=== PATIENT | female | born 1935 | race Caucasian/White ===

== ENCOUNTER 2018-04-11 16:19 | Inpatient (IN) | payer MEDICARE ==
[~2018-04-11] VITALS: Ht 160 cm; Wt 69.7 kg
[2018-04-11] MEDS ORDERED: SODIUM CHLORIDE 0.9% 1000ML BAG (SEPSIS BOLUS) IV ONE (18:15)
[2018-04-11 19:44] LABS: CHLORIDE 110 mEq/L (98-107)
[2018-04-11 19:47] LABS: PROTHROMBIN TIME 10.4 sec (9.1-11.1)
[2018-04-11] MEDS ORDERED: VANCOMYCIN 1 G PREMIX 200 ML IV ONE (20:00)
[2018-04-11] MEDS ORDERED: PIPERACILLIN/TAZ 3.375G PREMIX 50 ML IV ONE (20:00)
[2018-04-11 20:20] LABS: HEMATOCRIT. 32.6 % (36.0-48.0); MEAN CORPUSCULAR VOLUME 71.9 fL (81.0-99.0); MEAN PLATELET VOLUME 8.2 fl (7.4-10.4); PLATELET 339 x1000/uL (130-400); RED BLOOD CELL COUNT 4.53 mill/uL (4.2-5.4); RED CELL DISTRIBUTION WIDTH 24.5 % (11.6-14.6)
[2018-04-11 20:46] LABS: PLATELET ESTIMATE NORMAL
[2018-04-11 22:05] LABS: CLARITY URINE CLOUDY (CLEAR); COLOR URINE YELLOW (YELLOW); KETONES URINE NEGATIVE (NEGATIVE); LEUKOCYTE ESTERASE URINE 2+ (NEGATIVE); NITRITE URINE POSITIVE (NEGATIVE); OCCULT BLOOD URINE NEGATIVE (NEGATIVE); PH URINE 5.5 (4.5-8.0); PROTEIN URINE TRACE (NEGATIVE); SPECIFIC GRAVITY URINE 1.016 (1.005-1.030); UROBILINOGEN URINE 0.2 E.U./dL (0.2-1.0)
[2018-04-11] MEDS ORDERED: ACETAMINOPHEN 325MG TABLET PO ONE (22:30)
[2018-04-12] VITALS (10 sets, daily range): BP systolic 80–117; BP diastolic 34–67
[2018-04-12] MEDS ORDERED: ACETAMINOPHEN 325MG TABLET PO PRN (02:45)
[2018-04-12] MEDS ORDERED: ONDANSETRON HCL 4MG/2ML VIAL IV PRN (02:45)
[2018-04-12] MEDS ORDERED: DOCUSATE SODIUM 100MG CAPSULE PO PRN (02:45)
[2018-04-12] MEDS ORDERED: HYDROCODONE/ACETAMINOPHEN 5/325MG TABLET PO PRN (02:45)
[2018-04-12] MEDS: SODIUM CHLORIDE 0.9% 1,000 ML IV SCH ×2 (02:51→16:47)
[2018-04-12] MEDS ORDERED: ONDANSETRON 4MG ODT PO PRN (03:00)
[2018-04-12] MEDS ORDERED: DEXTROSE 50% WATER 50ML SYRINGE IV PRN (04:45)
[2018-04-12] MEDS ORDERED: LEVOFLOXACIN 500MG PREMIX 100 ML IV SCH ×2 (05:00)
[2018-04-12] MEDS ORDERED: LEVE500T19 MT (05:56)
[2018-04-12] MEDS ORDERED: vit d PO (05:56)
[2018-04-12] MEDS ORDERED: OMEG-95 MT (05:56)
[2018-04-12] MEDS ORDERED: CYAN500T47 MT (05:56)
[2018-04-12] MEDS ORDERED: GLIM2TAB2 PO (05:56)
[2018-04-12] MEDS ORDERED: LOSA50TA20 MT (05:56)
[2018-04-12] MEDS ORDERED: FOLI-43 MT (05:56)
[2018-04-12] MEDS ORDERED: METF500T6 MT (05:56)
[2018-04-12] MEDS ORDERED: PANT40TA4 MT (05:56)
[2018-04-12] MEDS: BLOOD SUGAR DIAGNOSTIC STRIP TEST SCH ×4 (06:51→21:23)
[2018-04-12] MEDS ORDERED: MECLIZINE (08:01)
[2018-04-12] MEDS ORDERED: ASPI-1079 PO (08:01)
[2018-04-12] MEDS ORDERED: ASPI-986 PO (08:01)
[2018-04-12] MEDS ORDERED: ATOR20TA65 MT (08:01)
[2018-04-12] MEDS ORDERED: MAGN400C PO (08:01)
[2018-04-12] MEDS: ASPIRIN 81MG EC TABLET PO SCH (08:19)
[2018-04-12] MEDS: INSULIN LISPRO 100 UNITS/ML SUBCUT SCH ×4 (08:20→21:00)
[2018-04-12] MEDS: ENOXAPARIN 40MG/0.4ML SYR SUBCUT SCH (08:20)
[2018-04-12] MEDS: AMLODIPINE 10MG TABLET PO SCH (08:21)
[2018-04-12] MEDS ORDERED: IPRATROPIUM/ALBUTEROL 0.5-3(2.5)MG/3ML NEB HHN PRN (11:30)
[2018-04-13] VITALS (15 sets, daily range): BP systolic 110–150; BP diastolic 54–75
[2018-04-13] MEDS: SODIUM CHLORIDE 0.9% 1,000 ML IV SCH ×2 (04:56→17:49)
[2018-04-13] MEDS ORDERED: LEVOFLOXACIN 250MG PREMIX 50 ML IV SCH (05:00)
[2018-04-13] MEDS: BLOOD SUGAR DIAGNOSTIC STRIP TEST SCH ×4 (05:27→21:29)
[2018-04-13] MEDS: INSULIN LISPRO 100 UNITS/ML SUBCUT SCH ×4 (05:27→21:00)
[2018-04-13 06:22] LABS: BASOPHILS % 0.5 % (0.0-2.0); EOSINOPHILS % 2.6 % (0.0-5.0); HEMATOCRIT. 26.2 % (36.0-48.0); HEMOGLOBIN. 8.3 g/dL (12.0-16.0); LYMPHOCYTES % 17.7 % (20.0-50.0); MEAN CORPUSCULAR HEMOGLOBIN 22.9 pg (28.0-32.0); MEAN CORPUSCULAR VOLUME 72.6 fL (81.0-99.0); MEAN PLATELET VOLUME 8.1 fl (7.4-10.4); MONOCYTES % 7.6 % (2.0-8.0); NEUTROPHILS % 71.6 % (40.0-76.0); PLATELET 254 x1000/uL (130-400); RED BLOOD CELL COUNT 3.62 mill/uL (4.2-5.4); RED CELL DISTRIBUTION WIDTH 24.1 % (11.6-14.6)
[2018-04-13] MEDS: ENOXAPARIN 40MG/0.4ML SYR SUBCUT SCH (08:18)
[2018-04-13] MEDS: ASPIRIN 81MG EC TABLET PO SCH (08:18)
[2018-04-13] MEDS: AMLODIPINE 10MG TABLET PO SCH (08:19)
[2018-04-13 09:04] LABS: CHLORIDE 111 mEq/L (98-107)
[2018-04-13] MEDS: CEFTAZIDIME PENTAHYDRATE 1 G in DEXTROSE 5% WATER 50 ML IV SCH (14:48)
[2018-04-14] VITALS (12 sets, daily range): BP systolic 107–157; BP diastolic 58–98
[2018-04-14] MEDS: CEFTAZIDIME PENTAHYDRATE 1 G in DEXTROSE 5% WATER 50 ML IV SCH ×2 (01:49→13:23)
[2018-04-14] MEDS: BLOOD SUGAR DIAGNOSTIC STRIP TEST SCH ×4 (06:25→20:51)
[2018-04-14] MEDS: INSULIN LISPRO 100 UNITS/ML SUBCUT SCH ×4 (07:20→20:51)
[2018-04-14] MEDS: AMLODIPINE 10MG TABLET PO SCH (08:07)
[2018-04-14] MEDS: ENOXAPARIN 40MG/0.4ML SYR SUBCUT SCH (08:07)
[2018-04-14] MEDS: ASPIRIN 81MG EC TABLET PO SCH (08:07)
[2018-04-14] MEDS: SODIUM CHLORIDE 0.9% 1,000 ML IV SCH ×2 (08:11→20:50)
[2018-04-14] MEDS: IPRATROPIUM/ALBUTEROL 0.5-3(2.5)MG/3ML NEB HHN SCH (20:47)
[2018-04-15] VITALS (12 sets, daily range): BP systolic 121–155; BP diastolic 61–75
[2018-04-15] MEDS: CEFTAZIDIME PENTAHYDRATE 1 G in DEXTROSE 5% WATER 50 ML IV SCH ×2 (02:03→16:24)
[2018-04-15] MEDS: ACETYLCYSTEINE 100MG/ML 10% VIAL 4ML INH SCH ×4 (02:20→21:09)
[2018-04-15] MEDS: IPRATROPIUM/ALBUTEROL 0.5-3(2.5)MG/3ML NEB HHN SCH ×4 (02:21→21:03)
[2018-04-15] MEDS: BLOOD SUGAR DIAGNOSTIC STRIP TEST SCH ×5 (06:50→22:03)
[2018-04-15] MEDS: INSULIN LISPRO 100 UNITS/ML SUBCUT SCH ×4 (07:20→21:00)
[2018-04-15] MEDS: AMLODIPINE 10MG TABLET PO SCH (08:53)
[2018-04-15] MEDS: ASPIRIN 81MG EC TABLET PO SCH (08:53)
[2018-04-15] MEDS: ENOXAPARIN 40MG/0.4ML SYR SUBCUT SCH (08:53)
[2018-04-15] MEDS: SODIUM CHLORIDE 0.9% 1,000 ML IV SCH ×2 (10:47→22:56)
[2018-04-15] MEDS ORDERED: MECLIZINE 25MG TABLET PO PRN (14:45)
[2018-04-16] VITALS (9 sets, daily range): BP systolic 106–157; BP diastolic 49–80
[2018-04-16] MEDS: CEFTAZIDIME PENTAHYDRATE 1 G in DEXTROSE 5% WATER 50 ML IV SCH (02:28)
[2018-04-16] MEDS: IPRATROPIUM/ALBUTEROL 0.5-3(2.5)MG/3ML NEB HHN SCH ×2 (03:19→07:30)
[2018-04-16] MEDS: BLOOD SUGAR DIAGNOSTIC STRIP TEST SCH ×2 (06:20→12:15)
[2018-04-16 06:29] LABS: BASOPHILS % 0.5 % (0.0-2.0); EOSINOPHILS % 4.9 % (0.0-5.0); HEMATOCRIT. 27.6 % (36.0-48.0); HEMOGLOBIN. 8.8 g/dL (12.0-16.0); LYMPHOCYTES % 15.8 % (20.0-50.0); MEAN CORPUSCULAR HEMOGLOBIN 22.9 pg (28.0-32.0); MEAN CORPUSCULAR VOLUME 71.9 fL (81.0-99.0); MEAN PLATELET VOLUME 8.6 fl (7.4-10.4); MONOCYTES % 6.6 % (2.0-8.0); NEUTROPHILS % 72.2 % (40.0-76.0); PLATELET 262 x1000/uL (130-400); RED BLOOD CELL COUNT 3.83 mill/uL (4.2-5.4); RED CELL DISTRIBUTION WIDTH 24.2 % (11.6-14.6)
[2018-04-16 06:32] LABS: CHLORIDE 109 mEq/L (98-107)
[2018-04-16] MEDS: INSULIN LISPRO 100 UNITS/ML SUBCUT SCH ×2 (07:20→12:15)
[2018-04-16] MEDS: ACETYLCYSTEINE 100MG/ML 10% VIAL 4ML INH SCH (07:30)
[2018-04-16] MEDS: ASPIRIN 81MG EC TABLET PO SCH (08:59)
[2018-04-16] MEDS: AMLODIPINE 10MG TABLET PO SCH (09:00)
[2018-04-16] MEDS: ENOXAPARIN 40MG/0.4ML SYR SUBCUT SCH (09:01)
== END 2018-04-16 16:30 | disposition home health service (06) | DRG 871 ==
LOC: ER 17:40 → EDBEDREQTM 20:14 → EDBEDREQ 20:14 → EDBEDREQSVC 20:14 → 3WST 20:16 → EDBEDREQ 20:18 → EDBEDREQTM 20:18 → ENRESERV 23:30
PROVIDERS: ADMIT Hospitalist; ATTEND Hospitalist
DX: A41.51 Sepsis due to Escherichia coli [E. coli] (principal); J96.00 Acute respiratory failure, unspecified whether with hypoxia or hypercapnia; J18.9 Pneumonia, unspecified organism; N39.0 Urinary tract infection, site not specified; G81.91 Hemiplegia, unspecified affecting right dominant side; E44.1 Mild protein-calorie malnutrition; I11.9 Hypertensive heart disease without heart failure; D64.9 Anemia, unspecified; E11.9 Type 2 diabetes mellitus without complications; Z86.73 Personal history of transient ischemic attack (TIA), and cerebral infarction without residual deficits; Z99.3 Dependence on wheelchair; Z68.27 Body mass index [BMI] 27.0-27.9, adult
CPT/HCPCS: 36415; 70450; 71045; 80053; 81003; 82962; 83605; 83735; 83880; 84134; 85025; 85610; 87040; 87077; 87086; 87186; 93005; 93970; 94640; 94667; 96365; 96367; 97110; 97163; 97530; 99291; A6261; C1893; J0713; J1650; J1815; J1956; J2543; J3370; J7030; J7060; J7608; J7620; A4315

== ENCOUNTER 2018-05-21 00:26 | Inpatient (IN) | payer MEDICARE ==
[~2018-05-21] VITALS: Ht 152.4 cm; Wt 55.0 kg
[2018-05-21] VITALS (26 sets, daily range): BP systolic 87–131; BP diastolic 44–95
[~2018-05-21 00:26] MED LIST: ASPI-1079 PO; ASPI-986 PO; ATOR20TA65 MT; CYAN500T47 MT; FOLI-43 MT; GLIM2TAB2 PO; LEVE500T19 MT; LOSA50TA20 MT; MAGN400C PO; MECLIZINE; METF500T6 MT; OMEG-95 MT; PANT40TA4 MT; vit d PO
[2018-05-21] MEDS ORDERED: SODIUM CHLORIDE 0.9% 1,000 ML IV ONE (00:33)
[2018-05-21] MEDS ORDERED: ADENOSINE 3 MG/ML 2ML VIAL IV ONE ×2 (00:37→00:45)
[2018-05-21] MEDS ORDERED: AMIODARONE HCL 900 MG in DEXT 5% WATER 500 ML IV ONE (00:45)
[2018-05-21] MEDS ORDERED: ASPIRIN 81MG TABLET PO ONE (00:45)
[2018-05-21] MEDS ORDERED: AMIODARONE HCL 150 MG in DEXT 5% WATER 100 ML IV ONE (00:45)
[2018-05-21] MEDS ORDERED: METOPROLOL TARTRATE 5MG/5ML VIAL IV ONE (00:45)
[2018-05-21] MEDS ORDERED: CLONIDINE 0.1MG TABLET PO PRN (01:00)
[2018-05-21] MEDS ORDERED: DEXTROSE 50% WATER 50ML SYRINGE IV PRN ×2 (01:00→08:45)
[2018-05-21] MEDS ORDERED: GUAIFENESIN 200MG/10ML SUGAR FREE UDC PO PRN (01:00)
[2018-05-21] MEDS ORDERED: DOCUSATE SODIUM 100MG CAPSULE PO PRN (01:00)
[2018-05-21] MEDS ORDERED: AMIODARONE HCL 900 MG in DEXT 5% WATER 482 ML IV PRN ×2 (01:00→01:15)
[2018-05-21] MEDS ORDERED: MAGNESIUM/ALUMINUM HYDROXIDE/SIMETHICONE 30ML UDC PO PRN (01:00)
[2018-05-21] MEDS ORDERED: DIGOXIN 500MCG/2ML AMP IV SCH ×2 (01:00→06:00)
[2018-05-21] MEDS ORDERED: ACETAMINOPHEN 650MG SUPP PR PRN (01:00)
[2018-05-21] MEDS ORDERED: IPRATROPIUM/ALBUTEROL 0.5-3(2.5)MG/3ML NEB INH PRN (01:00)
[2018-05-21] MEDS ORDERED: NA PHOS,M-B/NA PHOS,DI-BA ENEMA 118ML PR PRN (01:00)
[2018-05-21] MEDS ORDERED: ONDANSETRON HCL 4MG/2ML INJ IV PRN (01:00)
[2018-05-21] MEDS ORDERED: HYDROCODONE/ACETAMINOPHEN 5/325MG TABLET PO PRN (01:00)
[2018-05-21] MEDS ORDERED: ACETAMINOPHEN 650MG/20.3ML UDC GT PRN (01:00)
[2018-05-21] MEDS ORDERED: DIPHENHYDRAMINE 50MG/ML VIAL IV PRN (01:00)
[2018-05-21 01:26] LABS: BASOPHILS % 0.5 % (0.0-2.0); EOSINOPHILS % 2.7 % (0.0-5.0); HEMATOCRIT. 42.2 % (36.0-48.0); HEMOGLOBIN. 13.2 g/dL (12.0-16.0); LYMPHOCYTES % 17.1 % (20.0-50.0); MEAN CORPUSCULAR HEMOGLOBIN 25.8 pg (28.0-32.0); MEAN CORPUSCULAR VOLUME 82.5 fL (81.0-99.0); MEAN PLATELET VOLUME 8.4 fl (7.4-10.4); MONOCYTES % 7.7 % (2.0-8.0); PLATELET 222 x1000/uL (130-400); RED BLOOD CELL COUNT 5.12 mill/uL (4.2-5.4); RED CELL DISTRIBUTION WIDTH 29.8 % (11.6-14.6)
[2018-05-21 01:32] LABS: D-DIMER 2.62 mg/L FEU (<0.50); INR 1.1; PARTIAL THROMBOPLASTIN TIME 22.1 sec (23.4-31.0); PROTHROMBIN TIME 10.7 sec (9.1-11.1)
[2018-05-21 02:36] LABS: CHLORIDE 110 mEq/L (98-107)
[2018-05-21 02:39] LABS: HDL CHOLESTEROL 29 mg/dL (40-59); LDL CHOLESTEROL 71 mg/dL (5-100)
[2018-05-21 03:59] LABS: CLARITY URINE CLEAR (CLEAR); COLOR URINE YELLOW (YELLOW); KETONES URINE NEGATIVE (NEGATIVE); LEUKOCYTE ESTERASE URINE TRACE (NEGATIVE); NITRITE URINE NEGATIVE (NEGATIVE); OCCULT BLOOD URINE NEGATIVE (NEGATIVE); PH URINE 5.5 (4.5-8.0); PROTEIN URINE NEGATIVE (NEGATIVE); SPECIFIC GRAVITY URINE 1.017 (1.005-1.030); UROBILINOGEN URINE 0.2 E.U./dL (0.2-1.0)
[2018-05-21 04:12] LABS: *AMPHETAMINES SCREEN URINE NEGATIVE (NEGATIVE); *BARBITURATES SCREEN URINE NEGATIVE (NEGATIVE); *BENZODIAZEPINES SCREEN URINE NEGATIVE (NEGATIVE); *COCAINE SCREEN URINE NEGATIVE (NEGATIVE); METHADONE URINE SCREEN NEGATIVE (NEGATIVE); OPIATES URINE SCREEN NEGATIVE (NEGATIVE); PHENCYCLIDINE URINE SCREEN NEGATIVE (NEGATIVE)
[2018-05-21 04:13] LABS: CANNABINOID URINE SCREEN NEGATIVE (NEGATIVE)
[2018-05-21] MEDS ORDERED: SODIUM CHLORIDE 0.45% 1,000 ML IV SCH (04:13)
[2018-05-21] MEDS ORDERED: ASPIRIN 325MG EC TABLET PO SCH (04:18)
[2018-05-21] MEDS ORDERED: ENOXAPARIN 60MG/0.6ML SYR SUBCUT SCH (05:00)
[2018-05-21] MEDS: SODIUM CHLORIDE 0.9% INJ 3ML FLUSH IVF SCH ×3 (05:42→22:59)
[2018-05-21] MEDS: INSULIN LISPRO 100 UNITS/ML SUBCUT SCH ×5 (07:27→21:00)
[2018-05-21] MEDS: BLOOD SUGAR DIAGNOSTIC STRIP TEST SCH ×4 (07:27→21:10)
[2018-05-21 07:29] LABS: CREATINE KINASE MB FRACTION 2.3 ng/mL (0.5-3.6)
[2018-05-21] MEDS: METOPROLOL TARTRATE 25MG TABLET PO SCH ×2 (09:00→21:11)
[2018-05-21] MEDS: ENOXAPARIN 30MG/0.3ML SYR SUBCUT SCH (10:35)
[2018-05-21] MEDS ORDERED: BLOOD SUGAR DIAGNOSTIC STRIP TEST SCH (12:50)
[2018-05-21] MEDS ORDERED: INSULIN LISPRO 100 UNITS/ML SUBCUT SCH (13:20)
[2018-05-21 16:02] LABS: CREATINE KINASE MB FRACTION 2.6 ng/mL (0.5-3.6)
[2018-05-21] MEDS: LEVETIRACETAM 500MG TABLET PO SCH (16:30)
[2018-05-21] MEDS: ATORVASTATIN CALCIUM 20MG TABLET PO SCH (16:30)
[2018-05-21] MEDS: GLIMEPIRIDE 2MG TABLET PO SCH (16:36)
[2018-05-21 18:47] LABS: T4 FREE 1.42 ng/dL (0.76-1.46)
[2018-05-22] VITALS (12 sets, daily range): BP systolic 106–159; BP diastolic 55–79
[2018-05-22] MEDS: SODIUM CHLORIDE 0.9% INJ 3ML FLUSH IVF SCH ×3 (06:25→21:21)
[2018-05-22] MEDS: BLOOD SUGAR DIAGNOSTIC STRIP TEST SCH ×4 (06:49→21:17)
[2018-05-22] MEDS: INSULIN LISPRO 100 UNITS/ML SUBCUT SCH ×4 (07:20→21:00)
[2018-05-22] MEDS: ASPIRIN 81MG TABLET PO SCH (08:21)
[2018-05-22] MEDS: GLIMEPIRIDE 2MG TABLET PO SCH (08:21)
[2018-05-22] MEDS: METOPROLOL TARTRATE 25MG TABLET PO SCH ×2 (08:21→21:20)
[2018-05-22] MEDS: LEVETIRACETAM 500MG TABLET PO SCH ×2 (08:21→17:22)
[2018-05-22] MEDS: ENOXAPARIN 30MG/0.3ML SYR SUBCUT SCH (08:22)
[2018-05-22] MEDS: ATORVASTATIN CALCIUM 20MG TABLET PO SCH (08:28)
[2018-05-22 11:32] LABS: BASOPHILS % 0.6 % (0.0-2.0); EOSINOPHILS % 3.9 % (0.0-5.0); HEMATOCRIT. 39.5 % (36.0-48.0); HEMOGLOBIN. 12.5 g/dL (12.0-16.0); LYMPHOCYTES % 16.2 % (20.0-50.0); MEAN CORPUSCULAR HEMOGLOBIN 26.1 pg (28.0-32.0); MEAN PLATELET VOLUME 8.4 fl (7.4-10.4); MONOCYTES % 6.8 % (2.0-8.0); NEUTROPHILS % 72.5 % (40.0-76.0); PLATELET 214 x1000/uL (130-400); RED BLOOD CELL COUNT 4.77 mill/uL (4.2-5.4); RED CELL DISTRIBUTION WIDTH 28.7 % (11.6-14.6)
[2018-05-22 11:39] LABS: CHLORIDE 108 mEq/L (98-107)
[2018-05-22] MEDS: LOSARTAN POTASSIUM 25 MG TABLET PO SCH (12:28)
[2018-05-22 16:08] LABS: PLATELET ESTIMATE NORMAL
[2018-05-23] VITALS (9 sets, daily range): BP systolic 95–122; BP diastolic 40–78
[2018-05-23] MEDS: BLOOD SUGAR DIAGNOSTIC STRIP TEST SCH ×2 (05:53→12:24)
[2018-05-23] MEDS: SODIUM CHLORIDE 0.9% INJ 3ML FLUSH IVF SCH (06:43)
[2018-05-23] MEDS: INSULIN LISPRO 100 UNITS/ML SUBCUT SCH ×2 (07:20→12:20)
[2018-05-23] MEDS: ATORVASTATIN CALCIUM 20MG TABLET PO SCH (09:33)
[2018-05-23] MEDS: LOSARTAN POTASSIUM 25 MG TABLET PO SCH (09:33)
[2018-05-23] MEDS: LEVETIRACETAM 500MG TABLET PO SCH (09:36)
[2018-05-23] MEDS: METOPROLOL TARTRATE 25MG TABLET PO SCH (09:36)
[2018-05-23] MEDS: ENOXAPARIN 30MG/0.3ML SYR SUBCUT SCH (09:36)
[2018-05-23] MEDS: GLIMEPIRIDE 2MG TABLET PO SCH (09:36)
[2018-05-23] MEDS: ASPIRIN 81MG TABLET PO SCH (09:36)
[2018-05-23] MEDS ORDERED: METO25TA6 PO (10:49)
== END 2018-05-23 14:35 | disposition home or self-care (01) | DRG 308 ==
LOC: ER 00:38 → CVICU 00:43 → EDBEDREQSVC 00:46 → EDBEDREQTM 00:46 → EDBEDREQ 00:46 → ENRESERV 03:05 → 3WST 09:48
PROVIDERS: ADMIT Family Medicine; ATTEND Family Medicine
DX: I47.1 Supraventricular tachycardia (principal); E43 Unspecified severe protein-calorie malnutrition; I48.91 Unspecified atrial fibrillation; E11.9 Type 2 diabetes mellitus without complications; I10 Essential (primary) hypertension; K21.9 Gastro-esophageal reflux disease without esophagitis; E78.5 Hyperlipidemia, unspecified; Z74.01 Bed confinement status; Z86.73 Personal history of transient ischemic attack (TIA), and cerebral infarction without residual deficits; Z68.23 Body mass index [BMI] 23.0-23.9, adult; Z79.82 Long term (current) use of aspirin; Z79.84 Long term (current) use of oral hypoglycemic drugs; Z79.899 Other long term (current) drug therapy; Z82.49 Family history of ischemic heart disease and other diseases of the circulatory system
CPT/HCPCS: 36415; 51702; 71045; 80053; 80061; 80305; 81003; 82550; 82553; 82962; 83036; 83880; 84439; 84443; 84484; 85025; 85379; 85610; 85730; 92960; 93005; 93306; 93970; 96361; 96374; 99291; J0153; J0282; J1160; J1650; J1815; J3490; J7030; J7060

== ENCOUNTER 2019-04-23 22:46 | Inpatient (IN) | payer MEDICARE ==
[~2019-04-23] VITALS: Ht 160 cm; Wt 59.0 kg
[~2019-04-23 22:46] MED LIST changes: -LOSA50TA20 MT; +LOSA50TA41 MT; +METF-414 MT; -METF500T6 MT; +METO25TA6 PO
[2019-04-24] MEDS ORDERED: ALBUTEROL (0.083%) 2.5MG/3ML NEB HHN STA (00:02)
[2019-04-24] MEDS ORDERED: SODIUM CHLORIDE 0.9% 1,000 ML IV ONE (00:02)
[2019-04-24] MEDS ORDERED: IPRATROPIUM BROMIDE (0.02%) 0.5MG/2.5ML NEB HHN STA (00:02)
[2019-04-24 00:28] LABS: BASOPHILS % 0.3 % (0.0-2.0); HEMATOCRIT. 42.6 % (36.0-48.0); HEMOGLOBIN. 14.4 g/dL (12.0-16.0); LYMPHOCYTES % 15.1 % (20.0-50.0); MEAN CORPUSCULAR HEMOGLOBIN 33.6 pg (28.0-32.0); MEAN CORPUSCULAR VOLUME 99.2 fL (81.0-99.0); MEAN PLATELET VOLUME 7.5 fl (7.4-10.4); MONOCYTES % 7.8 % (2.0-8.0); NEUTROPHILS % 76.8 % (40.0-76.0); PLATELET 215 x1000/uL (130-400); RED CELL DISTRIBUTION WIDTH 15.7 % (11.6-14.6)
[2019-04-24 00:34] LABS: CHLORIDE 104 mEq/L (98-107)
[2019-04-24 00:41] LABS: BG BASE EXCESS 1.8 mmol/L (-2.0-2.0); BG CARBOXYHEMOGLOBIN 0.3 % (0.5-1.5); BG DEOXYHEMOGLOBIN 2.2 % (0.0-5.0); BG FRACTION INSPIRED OXYGEN 28; BG HCO3 ACT 25.4 mmol/L (22.0-26.0); BG METHEMOGLOBIN 0.3 % (0.0-1.5); BG OXYGEN SATURATION 97.8 % (92.0-98.5); BG OXYHEMOGLOBIN 97.2 % (94.0-97.0); BG PCO2 36.6 mmHg (35.0-45.0); BG PH 7.459 (7.350-7.450); BG PO2 113.2 mmHg (75.0-100.0); BG SAMPLE SITE LEFT RADIAL; BG TOTAL HEMOGLOBIN 13.9 g/dL (12.0-18.0); BG VENT MODE NASAL CANNULA
[2019-04-24] MEDS ORDERED: AZITHROMYCIN 500 MG in DEXT 5% WATER 250 ML IV SCH (02:00)
[2019-04-24] MEDS ORDERED: CEFTRIAXONE 1 G PREMIX 50 ML IV SCH (02:00)
[2019-04-24 08:42] VITALS: BP 144/59
[2019-04-24] MEDS ORDERED: ACETAMINOPHEN 325MG TABLET PO PRN (08:45)
[2019-04-24] MEDS ORDERED: ONDANSETRON HCL 4MG/2ML INJ IV PRN (08:45)
[2019-04-24] MEDS ORDERED: FUROSEMIDE 20MG/2ML VIAL IVP NR (08:45)
[2019-04-24] MEDS ORDERED: MECL-109 MT (09:17)
[2019-04-24] MEDS ORDERED: DIGO125T82 MT (09:17)
[2019-04-24] MEDS ORDERED: AMIO100T4 PO (09:17)
[2019-04-24 11:38] VITALS: BP 101/48
[2019-04-24] MEDS ORDERED: DEXTROSE 50% WATER 50ML SYRINGE IV PRN (12:00)
[2019-04-24] MEDS: BLOOD SUGAR DIAGNOSTIC STRIP TEST SCH ×3 (12:20→20:39)
[2019-04-24] MEDS: INSULIN LISPRO 100 UNITS/ML SUBCUT SCH ×3 (12:50→20:40)
[2019-04-24] MEDS: IPRATROPIUM/ALBUTEROL 0.5-3(2.5)MG/3ML NEB HHN SCH ×3 (13:17→21:02)
[2019-04-24 14:20] LABS: CLARITY URINE CLEAR (CLEAR); COLOR URINE YELLOW (YELLOW); KETONES URINE NEGATIVE (NEGATIVE); LEUKOCYTE ESTERASE URINE NEGATIVE (NEGATIVE); NITRITE URINE NEGATIVE (NEGATIVE); OCCULT BLOOD URINE NEGATIVE (NEGATIVE); PH URINE 5.5 (4.5-8.0); PROTEIN URINE NEGATIVE (NEGATIVE); SPECIFIC GRAVITY URINE 1.011 (1.005-1.030); UROBILINOGEN URINE 0.2 E.U./dL (0.2-1.0)
[2019-04-24] MEDS: PIPERACILLIN/TAZOBACTAM 2.25 G in DEXTROSE 5% WATER 50 ML IV SCH ×2 (14:58→20:50)
[2019-04-24 15:50] VITALS: BP 111/53
[2019-04-24 20:33] VITALS: BP 121/55
[2019-04-24] MEDS: ENOXAPARIN 40MG/0.4ML SYR SUBCUT SCH (20:57)
[2019-04-25 00:19] VITALS: BP 120/60
[2019-04-25] MEDS: IPRATROPIUM/ALBUTEROL 0.5-3(2.5)MG/3ML NEB HHN SCH ×6 (01:13→21:32)
[2019-04-25] MEDS: PIPERACILLIN/TAZOBACTAM 2.25 G in DEXTROSE 5% WATER 50 ML IV SCH ×4 (03:25→20:17)
[2019-04-25 04:29] VITALS: BP 112/67
[2019-04-25 06:45] LABS: BASOPHILS % 0.7 % (0.0-2.0); HEMATOCRIT. 35.3 % (36.0-48.0); HEMOGLOBIN. 11.7 g/dL (12.0-16.0); LYMPHOCYTES % 17.9 % (20.0-50.0); MEAN CORPUSCULAR HEMOGLOBIN 33.2 pg (28.0-32.0); MEAN CORPUSCULAR VOLUME 100.4 fL (81.0-99.0); MEAN PLATELET VOLUME 8.2 fl (7.4-10.4); NEUTROPHILS % 73.4 % (40.0-76.0); PLATELET 178 x1000/uL (130-400); RED BLOOD CELL COUNT 3.52 mill/uL (4.2-5.4); RED CELL DISTRIBUTION WIDTH 15.9 % (11.6-14.6)
[2019-04-25] MEDS: BLOOD SUGAR DIAGNOSTIC STRIP TEST SCH ×4 (07:20→21:00)
[2019-04-25] MEDS: INSULIN LISPRO 100 UNITS/ML SUBCUT SCH ×4 (07:50→21:00)
[2019-04-25 08:00] VITALS: BP 125/77
[2019-04-25] MEDS: PANTOPRAZOLE SODIUM 40 MG/VIAL IV SCH (18:34)
[2019-04-25 20:33] VITALS: BP 125/60
[2019-04-26] VITALS (7 sets, daily range): BP systolic 113–143; BP diastolic 52–77
[2019-04-26] MEDS: ENOXAPARIN 40MG/0.4ML SYR SUBCUT SCH (00:38)
[2019-04-26] MEDS: IPRATROPIUM/ALBUTEROL 0.5-3(2.5)MG/3ML NEB HHN SCH ×6 (01:29→19:28)
[2019-04-26] MEDS: PIPERACILLIN/TAZOBACTAM 2.25 G in DEXTROSE 5% WATER 50 ML IV SCH ×3 (02:05→15:20)
[2019-04-26] MEDS: BLOOD SUGAR DIAGNOSTIC STRIP TEST SCH ×2 (06:56→12:20)
[2019-04-26] MEDS: INSULIN LISPRO 100 UNITS/ML SUBCUT SCH ×2 (06:57→12:50)
[2019-04-26] MEDS: PANTOPRAZOLE SODIUM 40 MG/VIAL IV SCH (09:14)
== END 2019-04-26 20:20 | disposition home health service (06) | DRG 871 ==
LOC: ER 23:32 → 6WST 04-24 02:51 → EDBEDREQ 04-24 02:54 → EDBEDREQTM 04-24 02:54 → ENRESERV 04-24 07:07
PROVIDERS: ADMIT Internal Medicine; ATTEND Internal Medicine
DX: A41.9 Sepsis, unspecified organism (principal); L89.313 Pressure ulcer of right buttock, stage 3; J96.00 Acute respiratory failure, unspecified whether with hypoxia or hypercapnia; J18.9 Pneumonia, unspecified organism; I69.351 Hemiplegia and hemiparesis following cerebral infarction affecting right dominant side; E87.2 Acidosis; I50.40 Unspecified combined systolic (congestive) and diastolic (congestive) heart failure; J68.0 Bronchitis and pneumonitis due to chemicals, gases, fumes and vapors; E78.5 Hyperlipidemia, unspecified; G40.909 Epilepsy, unspecified, not intractable, without status epilepticus; I11.0 Hypertensive heart disease with heart failure; K44.9 Diaphragmatic hernia without obstruction or gangrene; E11.9 Type 2 diabetes mellitus without complications; I48.91 Unspecified atrial fibrillation; J45.909 Unspecified asthma, uncomplicated; L89.320 Pressure ulcer of left buttock, unstageable; Z90.710 Acquired absence of both cervix and uterus; Z90.49 Acquired absence of other specified parts of digestive tract; I69.320 Aphasia following cerebral infarction; Z79.82 Long term (current) use of aspirin; Z79.899 Other long term (current) drug therapy; Z79.84 Long term (current) use of oral hypoglycemic drugs
CPT/HCPCS: 36415; 36600; 71045; 80048; 81003; 82375; 82805; 82962; 83036; 83605; 83880; 84134; 84484; 92610; 93005; 93306; 93970; 94640; 96361; 96365; 96368; 97162; 99285; C9113; J0456; J0696; J1650; J1940; J2543; J7030; J7060; J7611; J7620

== ENCOUNTER 2022-03-02 19:40 | Inpatient (IN) | payer MEDICARE, OTHER ==
[~2022-03-02] VITALS: Ht 160 cm; Wt 70.5 kg
[~2022-03-02 19:40] MED LIST changes: +AMIO100T4 PO; -ASPI-1079 PO; -ASPI-986 PO; -CYAN500T47 MT; +DIGO125T80 MT; -FOLI-43 MT; -GLIM2TAB2 PO; +GLIM2TAB30 PO; -LEVE500T19 MT; -MAGN400C PO; +MECL-159 MT; -MECLIZINE; -OMEG-95 MT; -PANT40TA4 MT; +PANT40TA51 MT; -vit d PO
[2022-03-02] MEDS ORDERED: SODIUM CHLORIDE 0.9% 1000ML BAG (SEPSIS BOLUS) IV ONE (20:45)
[2022-03-02] MEDS ORDERED: PIPERACILLIN/TAZ 3.375G PREMIX 50 ML IV ONE (20:45)
[2022-03-02 22:04] LABS: CLARITY URINE CLEAR (CLEAR); COLOR URINE YELLOW (YELLOW); KETONES URINE NEGATIVE (NEGATIVE); LEUKOCYTE ESTERASE URINE 3+ (NEGATIVE); NITRITE URINE NEGATIVE (NEGATIVE); OCCULT BLOOD URINE 2+ (NEGATIVE); PROTEIN URINE 1+ (NEGATIVE); SPECIFIC GRAVITY URINE 1.019 (1.005-1.030)
[2022-03-02 23:18] LABS: HEMOGLOBIN. 13.2 g/dL (12.0-16.0); MEAN CORPUSCULAR VOLUME 93.4 fL (81.0-99.0); MEAN PLATELET VOLUME 8.4 fl (7.4-10.4); PLATELET 219 x1000/uL (130-400); RED BLOOD CELL COUNT 4.39 mill/uL (4.2-5.4); RED CELL DISTRIBUTION WIDTH 14.6 % (11.6-14.6)
[2022-03-02 23:20] LABS: CHLORIDE 113 mEq/L (98-107)
[2022-03-02] MEDS ORDERED: VANCOMYCIN 1G PREMIX 200 ML IV NR (23:45)
[2022-03-03 00:08] LABS: PLATELET ESTIMATE NORMAL
[2022-03-03] MEDS: VANCOMYCIN 1G PREMIX 200 ML IV ONE ×2 (00:30→01:14)
[2022-03-03] MEDS ORDERED: ACETAMINOPHEN 325MG TABLET PO ONE (02:45)
[2022-03-03] MEDS ORDERED: HYDROCODONE/ACETAMINOPHEN 5/325MG TABLET PO PRN (07:30)
[2022-03-03] MEDS ORDERED: ACETAMINOPHEN 325MG TABLET PO PRN (07:30)
[2022-03-03] MEDS ORDERED: TRAMADOL 50MG TABLET PO PRN (07:30)
[2022-03-03] MEDS ORDERED: GUAIFENESIN 200MG/10ML SUGAR FREE UDC PO PRN (07:30)
[2022-03-03] MEDS ORDERED: ONDANSETRON HCL 4MG/2ML INJ IV PRN (07:30)
[2022-03-03] MEDS ORDERED: MAGNESIUM/ALUMINUM HYDROXIDE/SIMETHICONE 30ML UDC PO PRN (07:30)
[2022-03-03] MEDS ORDERED: DOCUSATE SODIUM 100MG CAPSULE PO PRN (07:30)
[2022-03-03] MEDS ORDERED: NALOXONE HCL 0.4MG/ML VIAL IV PRN (07:45)
[2022-03-03] MEDS ORDERED: CEFTRIAXONE 1 G PREMIX 50 ML IV SCH (08:00)
[2022-03-03] MEDS ORDERED: ENOXAPARIN 30MG/0.3ML SYR SUBCUT SCH (09:00)
[2022-03-03] MEDS ORDERED: CLOT21CR VG (12:18)
[2022-03-03] MEDS ORDERED: SERT-422 PO (12:18)
[2022-03-03] MEDS ORDERED: TRAM50TA3 MT (12:18)
[2022-03-03] MEDS ORDERED: LORA10CA PO (12:18)
[2022-03-03] MEDS ORDERED: OMEP20CA14 PO (12:18)
[2022-03-03] MEDS ORDERED: LOSA25TA3 MT (12:18)
[2022-03-03] MEDS ORDERED: ACET-2708 MT (12:18)
[2022-03-03] MEDS: SODIUM CHLORIDE 0.9% 1,000 ML IV SCH ×2 (12:24→20:49)
[2022-03-03 13:09] VITALS: BP 99/45
[2022-03-03] MEDS ORDERED: AZITHROMYCIN 500MG/250ML 250 ML IV ONE (13:30)
[2022-03-03] MEDS: ENOXAPARIN 60MG/0.6ML SYR SUBCUT SCH (13:49)
[2022-03-03] MEDS ORDERED: CEFTRIAXONE 1,000 MG in DEXTROSE 5% WATER 50 ML IV SCH (14:00)
[2022-03-03] MEDS ORDERED: DEXTROSE 50% WATER 50ML SYRINGE IV PRN (14:15)
[2022-03-03] MEDS: BLOOD SUGAR DIAGNOSTIC STRIP TEST SCH ×3 (14:41→20:49)
[2022-03-03] MEDS: INSULIN LISPRO 100 UNITS/ML SUBCUT SCH ×3 (15:20→20:58)
[2022-03-03] MEDS: AZITHROMYCIN 500MG in DEXTROSE 5% WATER 250ML IV SCH (15:33)
[2022-03-03] MEDS: METFORMIN HCL 500MG TABLET PO SCH (17:18)
[2022-03-03] MEDS: CEFTRIAXONE 1,000 MG in DEXTROSE 5% WATER 50 ML IV SCH (17:19)
[2022-03-03 18:00] VITALS: BP 115/95
[2022-03-03 20:00] VITALS: BP 121/55
[2022-03-04 00:08] VITALS: BP 101/42
[2022-03-04 04:00] VITALS: BP 113/47
[2022-03-04 06:18] LABS: CHLORIDE 117 mEq/L (98-107)
[2022-03-04 06:21] LABS: BASOPHILS % 0.4 % (0.0-2.0); EOSINOPHILS % 0.5 % (0.0-5.0); HEMATOCRIT. 34.7 % (36.0-48.0); HEMOGLOBIN. 11.5 g/dL (12.0-16.0); LYMPHOCYTES % 10.9 % (20.0-50.0); MEAN CORPUSCULAR HEMOGLOBIN 30.3 pg (28.0-32.0); MEAN CORPUSCULAR VOLUME 91.3 fL (81.0-99.0); MONOCYTES % 8.4 % (2.0-8.0); NEUTROPHILS % 79.8 % (40.0-76.0); RED CELL DISTRIBUTION WIDTH 14.7 % (11.6-14.6)
[2022-03-04] MEDS: BLOOD SUGAR DIAGNOSTIC STRIP TEST SCH ×4 (06:25→21:03)
[2022-03-04 06:30] LABS: HDL CHOLESTEROL 18 mg/dL (40-59); LDL CHOLESTEROL 81 mg/dL (5-100)
[2022-03-04] MEDS: METFORMIN HCL 500MG TABLET PO SCH ×2 (06:44→17:21)
[2022-03-04] MEDS: INSULIN LISPRO 100 UNITS/ML SUBCUT SCH ×4 (06:45→21:00)
[2022-03-04 07:39] LABS: INR 1.1; PROTHROMBIN TIME 11.6 sec (9.6-11.0)
[2022-03-04 08:00] VITALS: BP 112/40
[2022-03-04] MEDS: SODIUM CHLORIDE 0.9% 1,000 ML IV SCH ×2 (09:42→23:50)
[2022-03-04 12:00] VITALS: BP 118/45
[2022-03-04] MEDS: ENOXAPARIN 60MG/0.6ML SYR SUBCUT SCH (13:06)
[2022-03-04] MEDS: CEFTRIAXONE 1,000 MG in DEXTROSE 5% WATER 50 ML IV SCH (13:54)
[2022-03-04 14:15] LABS: MEAN PLATELET VOLUME 8.8 fl (7.4-10.4); PLATELET 208 x1000/uL (130-400)
[2022-03-04] MEDS: AZITHROMYCIN 500MG in DEXTROSE 5% WATER 250ML IV SCH (14:41)
[2022-03-04 16:00] VITALS: BP 116/47
[2022-03-04 20:00] VITALS: BP 129/53
[2022-03-04] MEDS ORDERED: LACTULOSE 20G/30ML UDC PO PRN (21:00)
[2022-03-05] VITALS: BP 148/60
[2022-03-05 04:00] VITALS: BP 122/54
[2022-03-05] MEDS: BLOOD SUGAR DIAGNOSTIC STRIP TEST SCH ×4 (06:23→21:13)
[2022-03-05] MEDS: INSULIN LISPRO 100 UNITS/ML SUBCUT SCH ×4 (06:24→21:00)
[2022-03-05] MEDS: METFORMIN HCL 500MG TABLET PO SCH ×2 (06:24→17:58)
[2022-03-05 06:54] LABS: HEMATOCRIT 38.2 % (36.0-48.0); HEMOGLOBIN 12.3 g/dL (12.0-16.0); MEAN CORPUSCULAR VOLUME 93.2 fL (81.0-99.0); PLATELET 197 x1000/uL (130-400); RED BLOOD CELL COUNT 4.09 mill/uL (4.2-5.4); RED CELL DISTRIBUTION WIDTH 14.7 % (11.6-14.6)
[2022-03-05 08:00] VITALS: BP 129/58
[2022-03-05 12:00] VITALS: BP 117/45
[2022-03-05] MEDS: ENOXAPARIN 80MG/0.8ML SYR SUBCUT SCH (13:34)
[2022-03-05] MEDS: SODIUM CHLORIDE 0.9% 1,000 ML IV SCH (13:34)
[2022-03-05] MEDS: CEFTRIAXONE 1,000 MG in DEXTROSE 5% WATER 50 ML IV SCH (13:35)
[2022-03-05] MEDS: AZITHROMYCIN 500MG in DEXTROSE 5% WATER 250ML IV SCH (15:26)
[2022-03-05 16:00] VITALS: BP 150/70
[2022-03-05 20:00] VITALS: BP 125/27
[2022-03-06] VITALS: BP 135/68
[2022-03-06] MEDS: SODIUM CHLORIDE 0.9% 1,000 ML IV SCH ×2 (03:24→15:42)
[2022-03-06 04:00] VITALS: BP 141/57
[2022-03-06] MEDS: BLOOD SUGAR DIAGNOSTIC STRIP TEST SCH ×4 (06:04→21:35)
[2022-03-06] MEDS: INSULIN LISPRO 100 UNITS/ML SUBCUT SCH ×4 (06:06→21:00)
[2022-03-06 07:23] LABS: HEMATOCRIT 38.1 % (36.0-48.0); HEMOGLOBIN 12.4 g/dL (12.0-16.0); MEAN CORPUSCULAR HEMOGLOBIN 30.4 pg (28.0-32.0); MEAN CORPUSCULAR VOLUME 93.1 fL (81.0-99.0); PLATELET 184 x1000/uL (130-400); RED BLOOD CELL COUNT 4.09 mill/uL (4.2-5.4); RED CELL DISTRIBUTION WIDTH 14.9 % (11.6-14.6)
[2022-03-06 08:00] VITALS: BP 161/68
[2022-03-06] MEDS: METFORMIN HCL 500MG TABLET PO SCH ×2 (08:49→17:47)
[2022-03-06 12:00] VITALS: BP 144/59
[2022-03-06] MEDS: ENOXAPARIN 80MG/0.8ML SYR SUBCUT SCH (14:14)
[2022-03-06] MEDS: CEFTRIAXONE 1,000 MG in DEXTROSE 5% WATER 50 ML IV SCH (14:15)
[2022-03-06] MEDS: AZITHROMYCIN 500MG in DEXTROSE 5% WATER 250ML IV SCH (15:42)
[2022-03-06 16:00] VITALS: BP 124/64
[2022-03-06 20:00] VITALS: BP 152/65
[2022-03-07] VITALS (8 sets, daily range): BP systolic 104–134; BP diastolic 47–85
[2022-03-07] MEDS: BLOOD SUGAR DIAGNOSTIC STRIP TEST SCH ×3 (06:17→16:40)
[2022-03-07] MEDS: INSULIN LISPRO 100 UNITS/ML SUBCUT SCH ×3 (06:17→17:10)
[2022-03-07] MEDS: SODIUM CHLORIDE 0.9% 1,000 ML IV SCH ×2 (06:50→18:31)
[2022-03-07] MEDS: METFORMIN HCL 500MG TABLET PO SCH ×2 (09:58→18:31)
[2022-03-07] MEDS: ENOXAPARIN 80MG/0.8ML SYR SUBCUT SCH (12:56)
[2022-03-07] MEDS: CEFTRIAXONE 1,000 MG in DEXTROSE 5% WATER 50 ML IV SCH (14:39)
[2022-03-07] MEDS: AZITHROMYCIN 500MG in DEXTROSE 5% WATER 250ML IV SCH (14:43)
[2022-03-07] MEDS ORDERED: AMOX-494 MT (19:04)
[2022-03-07] MEDS ORDERED: APIX5TAB MT (19:04)
[2022-03-07] MEDS ORDERED: LEVO500T90 MT (19:04)
[2022-03-07] MEDS ORDERED: LEVA0.6320 NEB (19:07)
[2022-03-07 19:46] LABS: BG BASE EXCESS 1.6 mmol/L (-2.0-2.0); BG CARBOXYHEMOGLOBIN 0.3 % (0.5-1.5); BG DEOXYHEMOGLOBIN 5.4 % (0.0-5.0); BG FRACTION INSPIRED OXYGEN 21; BG HCO3 ACT 24.8 mmol/L (22.0-26.0); BG METHEMOGLOBIN 0.2 % (0.0-1.5); BG OXYGEN SATURATION 94.6 % (92.0-98.5); BG OXYHEMOGLOBIN 94.1 % (94.0-97.0); BG PCO2 34.5 mmHg (35.0-45.0); BG PH 7.475 (7.350-7.450); BG PO2 69.7 mmHg (75.0-100.0); BG SAMPLE SITE LEFT RADIAL; BG TOTAL HEMOGLOBIN 11.9 g/dL (12.0-18.0); BG VENT MODE ROOM AIR
== END 2022-03-07 23:08 | disposition home or self-care (01) | DRG 871 ==
LOC: ER 19:40 → 7EST 03-03 02:18 → ENRESERV 03-03 07:47
PROVIDERS: ADMIT Internal Medicine; ATTEND Internal Medicine
DX: A41.59 Other Gram-negative sepsis (principal); E43 Unspecified severe protein-calorie malnutrition; L89.153 Pressure ulcer of sacral region, stage 3; J18.9 Pneumonia, unspecified organism; J96.01 Acute respiratory failure with hypoxia; N39.0 Urinary tract infection, site not specified; I69.351 Hemiplegia and hemiparesis following cerebral infarction affecting right dominant side; E11.9 Type 2 diabetes mellitus without complications; Z20.822 Contact with and (suspected) exposure to COVID-19; E86.0 Dehydration; I10 Essential (primary) hypertension; K56.41 Fecal impaction; K57.90 Diverticulosis of intestine, part unspecified, without perforation or abscess without bleeding; N20.0 Calculus of kidney; N28.1 Cyst of kidney, acquired; I48.91 Unspecified atrial fibrillation; I27.20 Pulmonary hypertension, unspecified; R79.89 Other specified abnormal findings of blood chemistry; B96.4 Proteus (mirabilis) (morganii) as the cause of diseases classified elsewhere; I25.10 Atherosclerotic heart disease of native coronary artery without angina pectoris; Z96.641 Presence of right artificial hip joint; Z68.27 Body mass index [BMI] 27.0-27.9, adult; Z79.899 Other long term (current) drug therapy; Z79.01 Long term (current) use of anticoagulants; Z79.84 Long term (current) use of oral hypoglycemic drugs
CPT/HCPCS: 36415; 36600; 71045; 74176; 80048; 80053; 80061; 81003; 82040; 82375; 82805; 82962; 83036; 83605; 84134; 84145; 84484; 85025; 85027; 87077; 87186; 87426; 93005; 93306; 93970; 97161; 99291; C9803; J0456; J0696; J1650; J1815; J2543; J3370; J7030; J7060

== ENCOUNTER 2023-05-09 20:30 | Emergency (ER) | payer OTHER, MEDICARE ==
[~2023-05-09] VITALS: Ht 157.5 cm; Wt 56.0 kg
[~2023-05-09 20:30] MED LIST changes: +ACET-2708 MT; +AMOX-494 MT; +APIX5TAB MT; +LEVA0.6320 NEB; +LEVO-65 MT; +OMEP20CA14 PO; +SERT-422 PO; +TRAM50TA3 MT
[2023-05-09 20:41] VITALS: O2SAT 94
[2023-05-09] MEDS ORDERED: PREDNISONE 20MG TABLET PO ONE (22:30)
[2023-05-09] MEDS ORDERED: FAMOTIDINE 20MG/2ML VIAL IV ONE (22:30)
[2023-05-09] MEDS ORDERED: DIPHENHYDRAMINE 50MG/ML VIAL IV ONE (22:30)
[2023-05-09 23:06] LABS: BASOPHILS % 0.2 % (0.0-2.0); EOSINOPHILS % 0.6 % (0.0-5.0); HEMATOCRIT. 46.5 % (36.0-48.0); HEMOGLOBIN. 15.2 g/dL (12.0-16.0); LYMPHOCYTES % 10.8 % (20.0-50.0); MEAN CORPUSCULAR HEMOGLOBIN 30.9 pg (28.0-32.0); MEAN CORPUSCULAR HGB CONC 32.7 g/dL (31.0-37.0); MEAN CORPUSCULAR VOLUME 94.4 fL (81.0-99.0); MEAN PLATELET VOLUME 7.5 fl (7.4-10.4); MONOCYTES % 6.7 % (2.0-8.0); NEUTROPHILS % 81.7 % (40.0-76.0); PLATELET 209 x1000/uL (130-400); RED BLOOD CELL COUNT 4.93 mill/uL (4.2-5.4); RED CELL DISTRIBUTION WIDTH 15.9 % (11.6-14.6); WHITE BLOOD COUNT 11.8 x1000/uL (4.5-11.0)
[2023-05-09 23:15] LABS: CHLORIDE 115 mEq/L (98-107); INDEX HEMOLYSI 1 (1-3); INDEX ICTERIC 1 (1-4); INDEX LIPEMIC 1 (1-3); SODIUM 138 mEq/L (136-145)
[2023-05-09 23:22] LABS: ALANINE AMINOTRANSFERASE 24 IU/L (13-61); ASPARTATE AMINOTRANSFERASE 24 IU/L (15-37); BILIRUBIN TOTAL 0.4 mg/dL (0.1-1.0); CALCIUM 8.9 mg/dL (8.5-10.1); CARBON DIOXIDE 28 mEq/L (21-32); CREATININE 1.2 mg/dL (0.6-1.3); GLUCOSE 147 mg/dL (70-105); PROTEIN TOTAL 7.3 g/dL (6.0-8.3); UREA NITROGEN BLOOD 28 mg/dL (7-21)
[2023-05-10 07:55] VITALS: BP 103/80; PULSE 65; RESP 16; TEMP 98.6
== END 2023-05-10 08:24 | disposition short-term general hospital (02) ==
LOC: ER 20:30
DX: R60.9 Edema, unspecified (principal); E11.9 Type 2 diabetes mellitus without complications; I10 Essential (primary) hypertension; Z86.73 Personal history of transient ischemic attack (TIA), and cerebral infarction without residual deficits; Z79.899 Other long term (current) drug therapy
CPT/HCPCS: 99285; 96374; 96375; 80053; 85025; 36415; J7512; J1200; J3490

== ENCOUNTER 2025-06-19 19:21 | Inpatient (IN) | payer BC, MEDICARE, OTHER ==
[~2025-06-19] VITALS: Ht 152.4 cm; Wt 65.8 kg
[~2025-06-19 19:21] MED LIST changes: -MECL-159 MT; +MECL-299 MT
[2025-06-19 19:51] VITALS: RESP 26
[2025-06-19] MEDS: SODIUM CHLORIDE 0.9% 1,000 ML IV ONE (20:16)
[2025-06-19] MEDS: PIPERACILLIN/TAZO 3.375G/50ML 50 ML IV ONE (20:24)
[2025-06-19 20:35] LABS: BASOPHILS % 0.3 % (0.0-2.0); EOSINOPHILS % 0.0 % (0.0-5.0); HEMATOCRIT. 44.4 % (36.0-48.0); HEMOGLOBIN. 14.3 g/dL (12.0-16.0); LYMPHOCYTES % 5.7 % (20.0-50.0); MEAN PLATELET VOLUME 8.7 fl (7.4-10.4); MONOCYTES % 6.8 % (2.0-8.0); NEUTROPHILS % 87.2 % (40.0-76.0); PLATELET 192 x1000/uL (130-400); RED BLOOD CELL COUNT 4.47 mill/uL (4.2-5.4); RED CELL DISTRIBUTION WIDTH 16.7 % (11.6-14.6)
[2025-06-19 20:46] LABS: INR 1.1
[2025-06-19 20:53] LABS: CREATININE 1.0 mg/dL (0.6-1.0)
[2025-06-19 20:54] LABS: UREA NITROGEN BLOOD 17 mg/dL (9-23)
[2025-06-19 20:55] LABS: ASPARTATE AMINOTRANSFERASE 20 IU/L (<34)
[2025-06-19 20:56] LABS: BILIRUBIN DIRECT 0.3 mg/dL (<=3.0); BILIRUBIN TOTAL 1.0 mg/dL (0.1-1.0); PROTEIN TOTAL 6.3 g/dL (6.0-8.3)
[2025-06-19 21:02] LABS: TROPONIN I HIGH SENSITIVITY 43 ng/L (3.0-34)
[2025-06-19] MEDS: VANCOMYCIN 1G PREMIX 200 ML IV ONE (21:58)
[2025-06-19 22:27] LABS: BG DEOXYHEMOGLOBIN 68.8 % (0.0-5.0)
[2025-06-19] MEDS ORDERED: MAGNESIUM/ALUMINUM HYDROXIDE/SIMETHICONE 30ML UDC PO PRN (23:45)
[2025-06-19] MEDS ORDERED: ENOXAPARIN 80MG/0.8ML SYR SUBCUT SCH (23:45)
[2025-06-19] MEDS ORDERED: AZITHROMYCIN 500MG/250ML 250 ML IV SCH (23:45)
[2025-06-19] MEDS ORDERED: MORPHINE SULFATE 2 MG/ML INJ (NOT FOR IM USE) IV PRN (23:45)
[2025-06-19] MEDS ORDERED: HYDROCODONE/ACETAMINOPHEN 5/325MG TABLET PO PRN (23:45)
[2025-06-19] MEDS ORDERED: ONDANSETRON HCL 4MG/2ML INJ IV PRN (23:45)
[2025-06-19] MEDS ORDERED: CLONIDINE 0.1MG TABLET PO PRN (23:45)
[2025-06-20] VITALS (15 sets, daily range): BP systolic 73–156; BP diastolic 44–117; PULSE 101–130; RESP 16–35; TEMP 36.1–36.8072; O2SAT 96–100
[2025-06-20] MEDS ORDERED: DEXTROSE 50% WATER 50ML SYRINGE IV PRN
[2025-06-20] MEDS: METHYLPREDNISOLONE SOD SUCC 40MG/ML (ACT-O-VIAL) IV SCH (00:57)
[2025-06-20] MEDS: DILTIAZEM HCL 5MG/ML 5ML VIAL IV NR (00:58)
[2025-06-20] MEDS: IPRATROPIUM BROMIDE (0.02%) 0.5MG/2.5ML NEB HHN SCH (01:18)
[2025-06-20 01:40] LABS: HEMATOCRIT. 41.4 % (36.0-48.0); HEMOGLOBIN. 13.5 g/dL (12.0-16.0); MEAN PLATELET VOLUME 8.7 fl (7.4-10.4); PLATELET 170 x1000/uL (130-400); RED BLOOD CELL COUNT 4.26 mill/uL (4.2-5.4); RED CELL DISTRIBUTION WIDTH 16.7 % (11.6-14.6)
[2025-06-20 01:46] LABS: CREATININE 0.8 mg/dL (0.6-1.0); UREA NITROGEN BLOOD 16 mg/dL (9-23)
[2025-06-20 01:54] LABS: TROPONIN I HIGH SENSITIVITY 49 ng/L (3.0-34)
[2025-06-20] MEDS: IOHEXOL-350 100 ML BOTTLE ONE (03:32)
[2025-06-20] MEDS: DILTIAZEM HCL 30MG TABLET PO SCH (06:00)
[2025-06-20 06:38] LABS: *AMPHETAMINES SCREEN URINE NEGATIVE (NEGATIVE); *BARBITURATES SCREEN URINE NEGATIVE (NEGATIVE); *BENZODIAZEPINES SCREEN URINE NEGATIVE (NEGATIVE); *COCAINE SCREEN URINE NEGATIVE (NEGATIVE); CANNABINOID URINE SCREEN NEGATIVE (NEGATIVE); ECSTASY MDMA SCREEN URINE NEGATIVE (NEGATIVE); METHADONE URINE SCREEN NEGATIVE (NEGATIVE); OPIATES URINE SCREEN NEGATIVE (NEGATIVE); PHENCYCLIDINE URINE SCREEN NEGATIVE (NEGATIVE)
[2025-06-20] MEDS: PIPERACILLIN/TAZO 3.375G/50ML 50 ML IV SCH (07:28)
[2025-06-20] MEDS: INSULIN LISPRO 100 UNITS/ML SUBCUT SCH (08:20)
[2025-06-20] MEDS: BLOOD SUGAR DIAGNOSTIC STRIP TEST SCH (09:00)
[2025-06-20] MEDS: SODIUM CHLORIDE 0.9% 1,000 ML IV NR (09:13)
[2025-06-20] MEDS: PANTOPRAZOLE SODIUM 40 MG/VIAL IV SCH (09:14)
[2025-06-20] MEDS ORDERED: NALOXONE HCL 0.4MG/ML VIAL IV PRN (09:15)
[2025-06-20] MEDS: ENOXAPARIN 60MG/0.6ML SYR SUBCUT SCH (09:23)
[2025-06-20] MEDS: SODIUM CHLORIDE 0.9% 1,000 ML IV SCH (10:47)
[2025-06-20] MEDS: AZITHROMYCIN 500MG/250ML 250 ML IV SCH (10:47)
[2025-06-20 11:05] LABS: BG BASE EXCESS -4.5 mmol/L (-2.0-3.0); BG CARBOXYHEMOGLOBIN 1.0 % (0.5-1.5); BG DEOXYHEMOGLOBIN 3.6 % (0.0-5.0); BG FLOW(L/min) 2.00 L/min; BG FRACTION INSPIRED OXYGEN 28; BG HCO3 ACT 19.7 mmol/L (21.0-28.0); BG METHEMOGLOBIN 0.3 % (0.5-1.5); BG OXYGEN SATURATION 96.4 % (94.0-98.0); BG OXYHEMOGLOBIN 95.1 % (94.0-98.0); BG PCO2 33.9 mmHg (32.0-45.0); BG PH 7.383 (7.350-7.450); BG PO2 88.0 mmHg (83.0-108.0); BG SAMPLE SITE RIGHT RADIAL; BG TOTAL HEMOGLOBIN 13.2 g/dL (12.0-16.0); BG VENT MODE NASAL CANNULA
[2025-06-20 11:36] LABS: BAND% 6.0 % (1.0-6.0); LYMPHOCYTES % MANUAL 3.0 % (20.0-60.0); MONOCYTES % MANUAL 6.0 % (2.0-8.0); NEUTROPHILS % MANUAL 85.0 % (45.0-75.0)
[2025-06-20 11:37] LABS: PLATELET ESTIMATE NORMAL
[2025-06-20] MEDS ORDERED: NOREPINEPHRINE 8MG/250ML PMX 250 ML IV PRN (13:30)
[2025-06-20 15:19] LABS: CLARITY URINE CLOUDY (CLEAR); COLOR URINE YELLOW (YELLOW); GLUCOSE URINE TRACE (NEGATIVE); KETONES URINE NEGATIVE (NEGATIVE); LEUKOCYTE ESTERASE URINE 2+ (NEGATIVE); NITRITE URINE POSITIVE (NEGATIVE); OCCULT BLOOD URINE 2+ (NEGATIVE); PH URINE 6.0 (4.5-8.0); PROTEIN URINE 1+ (NEGATIVE); SPECIFIC GRAVITY URINE 1.047 (1.005-1.030); UROBILINOGEN URINE 0.2 E.U./dL (0.2-1.0)
[2025-06-20 16:46] LABS: BACTERIA URINE 2+; SQUAMOUS EPITHELIAL CELL URINE 1+ /lpf (RARE/1+)
[2025-06-20 16:47] LABS: WBC URINE 25-50 /hpf (0-2)
[2025-06-20] MEDS: VANCOMYCIN 750MG/150ML (BAXTER) IV SCH (21:10)
[2025-06-21] VITALS (18 sets, daily range): BP systolic 77–154; BP diastolic 46–138; PULSE 72–123; RESP 16–33; TEMP 34.4–36.7; O2SAT 93–100
[2025-06-21 06:50] LABS: HEMATOCRIT. 39.2 % (36.0-48.0); HEMOGLOBIN. 12.4 g/dL (12.0-16.0); MEAN PLATELET VOLUME 9.1 fl (7.4-10.4); PLATELET 158 x1000/uL (130-400); RED BLOOD CELL COUNT 3.95 mill/uL (4.2-5.4); RED CELL DISTRIBUTION WIDTH 17.0 % (11.6-14.6)
[2025-06-21 07:01] LABS: CREATININE 0.7 mg/dL (0.6-1.0); UREA NITROGEN BLOOD 20 mg/dL (9-23)
[2025-06-21 17:57] LABS: BAND% 25.0 % (1.0-6.0); LYMPHOCYTES % MANUAL 11.0 % (20.0-60.0); METAMYELOCYTES % 2.0 % (0-0); MONOCYTES % MANUAL 3.0 % (2.0-8.0); NEUTROPHILS % MANUAL 59.0 % (45.0-75.0); PLATELET ESTIMATE NORMAL
[2025-06-21] MEDS: MENTHOL/LANOLIN/CALAMINE/ZN OX OINT 71GM TOP SCH (22:38)
[2025-06-22] VITALS (15 sets, daily range): BP systolic 91–181; BP diastolic 53–140; PULSE 80–102; RESP 20–35; TEMP 36.2–37; O2SAT 91–100
[2025-06-22 08:21] LABS: HEMATOCRIT. 39.8 % (36.0-48.0); HEMOGLOBIN. 12.9 g/dL (12.0-16.0); MEAN PLATELET VOLUME 9.0 fl (7.4-10.4); PLATELET 173 x1000/uL (130-400); RED BLOOD CELL COUNT 4.12 mill/uL (4.2-5.4); RED CELL DISTRIBUTION WIDTH 16.2 % (11.6-14.6)
[2025-06-22 09:00] LABS: CREATININE 1.0 mg/dL (0.6-1.0); UREA NITROGEN BLOOD 29.0 mg/dL (9-23)
[2025-06-22] MEDS ORDERED: SODIUM ZIRCONIUM CYCLOSILICATE 10GM/PACKET PO NR (09:45)
[2025-06-22 11:02] LABS: BAND% 10.0 % (1.0-6.0); LYMPHOCYTES % MANUAL 6.0 % (20.0-60.0); MONOCYTES % MANUAL 2.0 % (2.0-8.0); NEUTROPHILS % MANUAL 82.0 % (45.0-75.0)
[2025-06-22 11:03] LABS: PLATELET ESTIMATE NORMAL
[2025-06-22] MEDS: SODIUM ZIRCONIUM CYCLOSILICATE 10GM/PACKET PO SCH (15:22)
[2025-06-22] MEDS: NA PHOS,M-B/NA PHOS,DI-BA ENEMA 118ML PR SCH (21:00)
[2025-06-22] MEDS: DOCUSATE SODIUM 100MG CAPSULE PO SCH (22:01)
[2025-06-23] VITALS (14 sets, daily range): BP systolic 103–151; BP diastolic 54–115; PULSE 78–96; RESP 16–35; TEMP 35.9–36.4; O2SAT 93–97
[2025-06-23 07:50] LABS: HEMATOCRIT. 37.0 % (36.0-48.0); HEMOGLOBIN. 11.9 g/dL (12.0-16.0); MEAN PLATELET VOLUME 9.4 fl (7.4-10.4); PLATELET 156 x1000/uL (130-400); RED BLOOD CELL COUNT 3.78 mill/uL (4.2-5.4); RED CELL DISTRIBUTION WIDTH 16.0 % (11.6-14.6)
[2025-06-23 08:07] LABS: CREATININE 1.2 mg/dL (0.6-1.0); UREA NITROGEN BLOOD 21.0 mg/dL (9-23)
[2025-06-23 12:50] LABS: BAND% 6.0 % (1.0-6.0); LYMPHOCYTES % MANUAL 6.0 % (20.0-60.0); MONOCYTES % MANUAL 2.0 % (2.0-8.0); NEUTROPHILS % MANUAL 86.0 % (45.0-75.0)
[2025-06-23 12:51] LABS: PLATELET ESTIMATE NORMAL
[2025-06-23] MEDS: ACETAMINOPHEN 325MG TABLET PO PRN (17:32)
[2025-06-23] MEDS: LACTULOSE 20G/30ML UDC PO PRN (17:32)
[2025-06-23] MEDS: ZOLPIDEM TARTRATE 5MG TABLET PO PRN (21:29)
[2025-06-24] VITALS (11 sets, daily range): BP systolic 102–126; BP diastolic 54–73; PULSE 86–103; RESP 17–30; TEMP 36.1–36.8; O2SAT 90–98
[2025-06-24] MEDS: VANCOMYCIN 500 MG in DEXT 5% WATER 100 ML IV SCH (01:28)
[2025-06-24 07:41] LABS: HEMATOCRIT. 36.2 % (36.0-48.0); HEMOGLOBIN. 11.7 g/dL (12.0-16.0); MEAN PLATELET VOLUME 8.9 fl (7.4-10.4); PLATELET 167 x1000/uL (130-400); RED BLOOD CELL COUNT 3.72 mill/uL (4.2-5.4); RED CELL DISTRIBUTION WIDTH 16.0 % (11.6-14.6)
[2025-06-24 07:54] LABS: CREATININE 1.0 mg/dL (0.6-1.0)
[2025-06-24 07:55] LABS: UREA NITROGEN BLOOD 22.0 mg/dL (9-23)
[2025-06-24] MEDS: METHYLPREDNISOLONE SOD SUCC 40MG/ML (ACT-O-VIAL) IV SCH (10:49)
[2025-06-24] MEDS: POLYETHYLENE GLYCOL 3350 (17GM) 1 DOSE PACK PO SCH (10:50)
[2025-06-24] MEDS: POTASSIUM CHLORIDE 20MEQ/PACKET PO SCH (10:51)
[2025-06-24 15:07] LABS: LYMPHOCYTES % MANUAL 4.0 % (20.0-60.0); MONOCYTES % MANUAL 2.0 % (2.0-8.0); NEUTROPHILS % MANUAL 94.0 % (45.0-75.0); PLATELET ESTIMATE NORMAL
[2025-06-24] MEDS: VANCOMYCIN 500MG PREMIX 100 ML IV SCH (18:44)
[2025-06-24] MEDS: NA PHOS,M-B/NA PHOS,DI-BA ENEMA 118ML PR NR (18:45)
[2025-06-25] VITALS (7 sets, daily range): BP systolic 111–152; BP diastolic 51–101; PULSE 75–90; RESP 18–24; TEMP 36–36.9; O2SAT 95–100
[2025-06-25 06:27] LABS: HEMATOCRIT. 35.4 % (36.0-48.0); HEMOGLOBIN. 11.7 g/dL (12.0-16.0); MEAN PLATELET VOLUME 8.2 fl (7.4-10.4); PLATELET 196 x1000/uL (130-400); RED BLOOD CELL COUNT 3.66 mill/uL (4.2-5.4); RED CELL DISTRIBUTION WIDTH 15.9 % (11.6-14.6)
[2025-06-25 06:30] LABS: CREATININE 0.9 mg/dL (0.6-1.0)
[2025-06-25 06:32] LABS: UREA NITROGEN BLOOD 23 mg/dL (9-23)
[2025-06-25 06:34] LABS: PHOSPHORUS 3.1 mg/dL (2.5-4.9)
[2025-06-25] MEDS ORDERED: LIDOCAINE HCL 1% 10 MG/ML 10ML VIAL ONE (11:53)
[2025-06-25 17:10] LABS: LYMPHOCYTES % MANUAL 7.0 % (20.0-60.0); MONOCYTES % MANUAL 2.0 % (2.0-8.0); NEUTROPHILS % MANUAL 91.0 % (45.0-75.0); PLATELET ESTIMATE NORMAL
[2025-06-26] VITALS: BP 140/58; PULSE 86; RESP 18; TEMP 36.6; O2SAT 97
[2025-06-26 04:00] VITALS: BP 121/70; PULSE 76; RESP 18; TEMP 36.8; O2SAT 98
[2025-06-26 08:00] VITALS: BP 130/96; PULSE 90; RESP 18; TEMP 35.7; O2SAT 95
[2025-06-26] MEDS: CEFTRIAXONE 2GM/50ML 50 ML IV SCH (10:39)
[2025-06-26] MEDS: PREDNISONE 10MG TABLET PO SCH (11:00)
[2025-06-26 12:00] VITALS: BP 134/98; PULSE 99; RESP 16; TEMP 35.9; O2SAT 94
[2025-06-26 15:38] VITALS: BP 140/73; PULSE 102; RESP 18; TEMP 97.6
[2025-06-26 16:00] VITALS: BP 131/81; PULSE 99; RESP 20; TEMP 36.6; O2SAT 100
== END 2025-06-26 19:10 | disposition home health service (06) | DRG 871 ==
LOC: ER 19:21 → 5EST 23:18 → EDBEDREQ 23:58 → EDBEDREQTM 23:58 → ENRESERV 06-20 01:23 → 5EST 06-20 08:35 → 7WST 06-25 00:01
PROVIDERS: ADMIT Internal Medicine; ATTEND Internal Medicine
PROC: 5A09357 Assistance with Respiratory Ventilation, Less than 24 Consecutive Hours, Continuous Positive Airway Pressure (ICD-10-PCS; 2025-06-19)
PROC: 5A0935A Assistance with Respiratory Ventilation, Less than 24 Consecutive Hours, High Flow/Velocity Cannula (ICD-10-PCS; 2025-06-24)
PROC: 02HV33Z Insertion of Infusion Device into Superior Vena Cava, Percutaneous Approach (ICD-10-PCS; principal; 2025-06-25)
PROC: B548ZZA Ultrasonography of Superior Vena Cava, Guidance (ICD-10-PCS; 2025-06-25)
DX: A41.51 Sepsis due to Escherichia coli [E. coli] (principal); G93.41 Metabolic encephalopathy; L89.153 Pressure ulcer of sacral region, stage 3; R65.21 Severe sepsis with septic shock; J96.01 Acute respiratory failure with hypoxia; J18.9 Pneumonia, unspecified organism; E87.20 Acidosis, unspecified; I82.432 Acute embolism and thrombosis of left popliteal vein; N39.0 Urinary tract infection, site not specified; N17.9 Acute kidney failure, unspecified; I27.82 Chronic pulmonary embolism; E11.9 Type 2 diabetes mellitus without complications; G40.909 Epilepsy, unspecified, not intractable, without status epilepticus; I07.1 Rheumatic tricuspid insufficiency; I11.0 Hypertensive heart disease with heart failure; I69.398 Other sequelae of cerebral infarction; I48.91 Unspecified atrial fibrillation; E78.5 Hyperlipidemia, unspecified; E87.5 Hyperkalemia; I25.10 Atherosclerotic heart disease of native coronary artery without angina pectoris; I25.2 Old myocardial infarction; Z74.01 Bed confinement status; Z87.440 Personal history of urinary (tract) infections
CPT/HCPCS: 36415; 36573; 36600; 71045; 71275; 74176; 80048; 80076; 80202; 80305; 81003; 82375; 82803; 82805; 82962; 83605; 83735; 83880; 84100; 84145; 84443; 84484; 85025; 85379; 86850; 86900; 87077; 87186; 93005; 93306; 93970; 93971; 94070; 94640; 94660; 94664; 96365; 96367; 99291; A4606; C1725; J0456; J0696; J1650; J1815; J2003; J2470; J2543; J2919; J3373; J3490; J7030; J7060; J7512; Q9967